=== PATIENT | female | born 1970 | race African-American/Black ===

== ENCOUNTER 2021-07-27 12:01 | Emergency (ER) | payer OTHER ==
[~2021-07-27] VITALS: Ht 172.7 cm; Wt 90.0 kg
[2021-07-27] MEDS ORDERED: ONDANSETRON HCL 4MG/2ML INJ ONE (14:02)
[2021-07-27] MEDS ORDERED: ONDANSETRON HCL 4MG/2ML INJ IV ONE ×2 (14:15→20:45)
[2021-07-27] MEDS ORDERED: SODIUM CHLORIDE 0.9% 1,000 ML IV ONE (14:15)
[2021-07-27 14:44] LABS: CHLORIDE 105 mEq/L (98-107)
[2021-07-27 15:09] LABS: HCG SCREEN NEGATIVE
[2021-07-27 15:25] LABS: BASOPHILS % 0.4 % (0.0-2.0); EOSINOPHILS % 0.4 % (0.0-5.0); HEMATOCRIT. 40.5 % (36.0-48.0); HEMOGLOBIN. 13.1 g/dL (12.0-16.0); LYMPHOCYTES % 18.2 % (20.0-50.0); MEAN CORPUSCULAR HEMOGLOBIN 26.5 pg (28.0-32.0); MEAN CORPUSCULAR VOLUME 81.6 fL (81.0-99.0); MEAN PLATELET VOLUME 9.6 fl (7.4-10.4); MONOCYTES % 3.1 % (2.0-8.0); NEUTROPHILS % 77.9 % (40.0-76.0); PLATELET 201 x1000/uL (130-400); RED BLOOD CELL COUNT 4.97 mill/uL (4.2-5.4); RED CELL DISTRIBUTION WIDTH 15.9 % (11.6-14.6)
[2021-07-27] MEDS ORDERED: ONDANSETRON HCL 4MG/2ML INJ IV NR (16:10)
[2021-07-27] MEDS ORDERED: METOCLOPRAMIDE HCL 10MG/2ML VIAL IV ONE (17:45)
[2021-07-27 21:54] VITALS: BP 166/90
== END 2021-07-27 22:24 | disposition short-term general hospital (02) ==
LOC: ER 12:24
DX: R11.2 Nausea with vomiting, unspecified (principal); I25.10 Atherosclerotic heart disease of native coronary artery without angina pectoris; Z20.822 Contact with and (suspected) exposure to COVID-19; Z95.810 Presence of automatic (implantable) cardiac defibrillator
CPT/HCPCS: 36415; 74176; 80048; 80076; 84484; 84703; 85025; 87426; 96361; 96374; 96375; 96376; 99285; C9803; J2405; J2765; J7030; Z7610

== ENCOUNTER 2023-10-31 10:44 | Emergency (ER) | payer OTHER ==
[~2023-10-31] VITALS: Ht 167.6 cm; Wt 84.0 kg
[2023-10-31 10:58] VITALS: O2SAT 100
[2023-10-31 11:27] LABS: BASOPHILS % 0.5 % (0.0-2.0); EOSINOPHILS % 4.9 % (0.0-5.0); HEMATOCRIT. 37.4 % (36.0-48.0); HEMOGLOBIN. 12.2 g/dL (12.0-16.0); LYMPHOCYTES % 25.5 % (20.0-50.0); MEAN CORPUSCULAR HEMOGLOBIN 27.1 pg (28.0-32.0); MEAN CORPUSCULAR HGB CONC 32.6 g/dL (31.0-37.0); MEAN CORPUSCULAR VOLUME 83.2 fL (81.0-99.0); MEAN PLATELET VOLUME 9.2 fl (7.4-10.4); NEUTROPHILS % 61.1 % (40.0-76.0); PLATELET 148 x1000/uL (130-400); RED CELL DISTRIBUTION WIDTH 15.4 % (11.6-14.6); WHITE BLOOD COUNT 5.9 x1000/uL (4.5-11.0)
[2023-10-31 11:40] LABS: CHLORIDE 107 mEq/L (98-107); POTASSIUM 3.4 mEq/L (3.5-5.1); SODIUM 140 mEq/L (136-145)
[2023-10-31 11:41] LABS: CALCIUM 9.2 mg/dL (8.7-10.4); CARBON DIOXIDE 27 mEq/L (21-32)
[2023-10-31 11:46] LABS: CREATININE 0.8 mg/dL (0.6-1.0); GLUCOSE 96 mg/dL (70-105); UREA NITROGEN BLOOD 8 mg/dL (9-23)
[2023-10-31 11:47] LABS: TROPONIN I HIGH SENSITIVITY 19 ng/L (3.0-34)
[2023-10-31 12:17] LABS: HCG SCREEN NEGATIVE
[2023-10-31 16:00] LABS: TROPONIN I HIGH SENSITIVITY 18 ng/L (3.0-34)
[2023-10-31] MEDS ORDERED: NALOXONE HCL 0.4MG/ML VIAL IV PRN (16:45)
[2023-10-31] MEDS ORDERED: MORPHINE SULFATE 2 MG/ML INJ (NOT FOR IM USE) IV PRN (20:00)
[2023-10-31 20:50] VITALS: BP 147/88; PULSE 63; RESP 17; O2SAT 100
== END 2023-10-31 21:07 | disposition short-term general hospital (02) ==
LOC: ER 11:12 → EDBEDREQ 12:24 → CANBEDREQ 19:06 → ER 21:07
DX: R07.89 Other chest pain (principal); R06.02 Shortness of breath; I25.2 Old myocardial infarction; Z95.0 Presence of cardiac pacemaker; Z20.822 Contact with and (suspected) exposure to COVID-19
CPT/HCPCS: 80048; 84703; 85025; 84484; 36415; 71045; 93005; 99285; 87426; Z7610 ×2